=== PATIENT | male | born 2000 | race Two or more races ===

== ENCOUNTER 2019-07-07 05:41 | Inpatient (IN) | payer MEDICAID ==
[2019-07-07] VITALS (40 sets, daily range): BP systolic 75–146; BP diastolic 39–94
[~2019-07-07] VITALS: Ht 170.2 cm; Wt 61.2 kg
[2019-07-07] MEDS ORDERED: THROMBIN (BOVINE) 5000 UNITS/VIAL TOP ONE (06:10)
[2019-07-07] MEDS ORDERED: LIDOCAINE HCL/EPINEPHRINE 1%-EPI 1:100,000 20 ML VIAL ONE (06:11)
[2019-07-07] MEDS ORDERED: BACITRACIN 50,000 UNITS/VIAL ONE (06:11)
[2019-07-07] MEDS ORDERED: NEOSTIGMINE METHYLSULFATE 1MG/ML 10 ML VIAL ONE (06:51)
[2019-07-07] MEDS ORDERED: ROCURONIUM BROMIDE 10MG/ML VIAL 5ML IV ONE ×2 (06:51→07:25)
[2019-07-07] MEDS ORDERED: PROPOFOL 200MG/20ML VIAL IV ONE ×2 (06:51→09:30)
[2019-07-07] MEDS ORDERED: FENTANYL CITRATE/PF 50MCG/ML 2ML VIAL ONE (06:51)
[2019-07-07] MEDS ORDERED: MIDAZOLAM HCL 2 MG/2 ML VIAL ONE ×3 (06:52→09:25)
[2019-07-07] MEDS ORDERED: METOCLOPRAMIDE HCL 10MG/2ML VIAL ONE ×2 (06:52→07:29)
[2019-07-07] MEDS ORDERED: CEFAZOLIN SODIUM 1000MG/VIAL ONE (06:52)
[2019-07-07] MEDS ORDERED: GLYCOPYRROLATE 0.2 MG/ML 2ML VIAL ONE (06:52)
[2019-07-07] MEDS ORDERED: LIDOCAINE HCL/PF 1% 10 MG/ML 5ML VIAL ONE (06:53)
[2019-07-07] MEDS ORDERED: SODIUM CHLORIDE 0.9% 10ML VIAL ONE (06:55)
[2019-07-07] MEDS ORDERED: ONDANSETRON HCL 4MG/2ML INJ ONE (07:29)
[2019-07-07] MEDS ORDERED: ONDANSETRON HCL 4MG/2ML INJ IV PRN (09:00)
[2019-07-07] MEDS ORDERED: LORAZEPAM 2MG/ML CPJ ONE (09:24)
[2019-07-07] MEDS ORDERED: PHENYTOIN SODIUM 250MG/5ML VIAL IV ONE (09:36)
[2019-07-07] MEDS: MORPHINE SULFATE 4 MG/ML CPJ (NOT FOR IM USE) IV PRN ×2 (10:52→14:54)
[2019-07-07] MEDS ORDERED: DIAZEPAM 5 MG/ML 2ML CPJ IV SCH (11:00)
[2019-07-07] MEDS ORDERED: NICARDIPINE 100 MG in SODIUM CHLORIDE 0.9% 60 ML IV PRN (11:00)
[2019-07-07] MEDS ORDERED: DIAZEPAM 5 MG/ML 2ML CPJ IV ONE (12:15)
[2019-07-07] MEDS: DEXT 5%/LACTATED RINGERS 1,000 ML IV SCH (12:32)
[2019-07-07] MEDS ORDERED: CEFAZOLIN SODIUM 1000MG/VIAL IV SCH (14:00)
[2019-07-07 14:15] LABS: BG BASE EXCESS -0.7 mmol/L (-2.0-2.0); BG CARBOXYHEMOGLOBIN 0.7 % (0.5-1.5); BG DEOXYHEMOGLOBIN 3.9 % (0.0-5.0); BG FRACTION INSPIRED OXYGEN 21; BG HCO3 ACT 24.8 mmol/L (22.0-26.0); BG METHEMOGLOBIN 0.5 % (0.0-1.5); BG OXYGEN SATURATION 96.1 % (92.0-98.5); BG OXYHEMOGLOBIN 94.9 % (94.0-97.0); BG PCO2 43.7 mmHg (35.0-45.0); BG PH 7.372 (7.350-7.450); BG PO2 78.8 mmHg (75.0-100.0); BG SAMPLE SITE RIGHT RADIAL; BG VENT MODE ROOM AIR
[2019-07-07] MEDS ORDERED: NALOXONE INJ IV PRN (14:45)
[2019-07-07] MEDS ORDERED: ONDANSETRON INJ IV PRN (14:45)
[2019-07-07] MEDS ORDERED: DIPHENHYDRAMINE INJ IV PRN (14:45)
[2019-07-07] MEDS: CEFAZOLIN 1000MG PREMIX 50 ML IV SCH ×2 (14:45→21:22)
[2019-07-07] MEDS: PHENYTOIN SODIUM 100MG/2ML VIAL IV SCH ×2 (14:45→22:00)
[2019-07-07 16:27] LABS: HEMATOCRIT. 44.8 % (42.0-52.0); HEMOGLOBIN. 15.5 g/dL (14.0-18.0); MEAN PLATELET VOLUME 8.6 fl (7.4-10.4); PLATELET 229 x1000/uL (130-400); RED BLOOD CELL COUNT 5.15 mill/uL (4.7-6.1); RED CELL DISTRIBUTION WIDTH 13.1 % (11.6-14.6)
[2019-07-07 16:31] LABS: CHLORIDE 104 mEq/L (98-107)
[2019-07-07] MEDS: HYDROMORPHONE PCA 10MG/50ML IV PRN (16:34)
[2019-07-07 16:39] LABS: CREATINE KINASE 432 IU/L (39-308)
[2019-07-07 17:09] LABS: PLATELET ESTIMATE NORMAL
[2019-07-08] VITALS (60 sets, daily range): BP systolic 113–180; BP diastolic 30–102
[2019-07-08] MEDS: CEFAZOLIN 1000MG PREMIX 50 ML IV SCH ×3 (05:09→22:05)
[2019-07-08] MEDS: HYDROCODONE/ACETAMINOPHEN 5/325MG TABLET PO PRN ×3 (05:16→17:48)
[2019-07-08 05:57] LABS: BASOPHILS % 0.2 % (0.0-2.0); CHLORIDE 103 mEq/L (98-107); HEMATOCRIT. 43.4 % (42.0-52.0); HEMOGLOBIN. 15.3 g/dL (14.0-18.0); MEAN CORPUSCULAR HEMOGLOBIN 30.4 pg (28.0-32.0); MEAN CORPUSCULAR VOLUME 86.2 fL (80.0-94.0); MEAN PLATELET VOLUME 8.9 fl (7.4-10.4); MONOCYTES % 8.4 % (2.0-8.0); NEUTROPHILS % 79.4 % (40.0-76.0); PLATELET 213 x1000/uL (130-400); RED BLOOD CELL COUNT 5.04 mill/uL (4.7-6.1); RED CELL DISTRIBUTION WIDTH 13.5 % (11.6-14.6)
[2019-07-08] MEDS: PHENYTOIN SODIUM 100MG/2ML VIAL IV SCH ×3 (05:57→21:49)
[2019-07-08 09:47] LABS: *AMPHETAMINES SCREEN URINE NEGATIVE (NEGATIVE); *BARBITURATES SCREEN URINE NEGATIVE (NEGATIVE); *BENZODIAZEPINES SCREEN URINE NEGATIVE (NEGATIVE)
[2019-07-08 09:48] LABS: *COCAINE SCREEN URINE NEGATIVE (NEGATIVE); CANNABINOID URINE SCREEN NEGATIVE (NEGATIVE); METHADONE URINE SCREEN NEGATIVE (NEGATIVE); OPIATES URINE SCREEN NEGATIVE (NEGATIVE); PHENCYCLIDINE URINE SCREEN NEGATIVE (NEGATIVE)
[2019-07-08] MEDS: DEXT 5%/LACTATED RINGERS 1,000 ML IV SCH ×4 (14:10→23:09)
[2019-07-08] MEDS: DOCUSATE SODIUM 100MG CAPSULE PO SCH (17:47)
[2019-07-08] MEDS ORDERED: POTASSIUM CHLORIDE 20MEQ TABLET SR PO NR (21:00)
[2019-07-09] VITALS: BP 123/72
[2019-07-09 04:00] VITALS: BP 122/80
[2019-07-09] MEDS: CEFAZOLIN 1000MG PREMIX 50 ML IV SCH (05:04)
[2019-07-09] MEDS: PHENYTOIN SODIUM 100MG/2ML VIAL IV SCH ×3 (05:15→21:35)
[2019-07-09 05:59] LABS: CHLORIDE 104 mEq/L (98-107)
[2019-07-09 06:05] LABS: BASOPHILS % 0.2 % (0.0-2.0); EOSINOPHILS % 0.3 % (0.0-5.0); HEMATOCRIT. 43.5 % (42.0-52.0); HEMOGLOBIN. 15.2 g/dL (14.0-18.0); LYMPHOCYTES % 16.6 % (20.0-50.0); MEAN CORPUSCULAR HEMOGLOBIN 30.4 pg (28.0-32.0); MEAN CORPUSCULAR VOLUME 87.3 fL (80.0-94.0); MEAN PLATELET VOLUME 8.8 fl (7.4-10.4); MONOCYTES % 10.2 % (2.0-8.0); NEUTROPHILS % 72.7 % (40.0-76.0); PLATELET 205 x1000/uL (130-400); RED BLOOD CELL COUNT 4.98 mill/uL (4.7-6.1); RED CELL DISTRIBUTION WIDTH 13.3 % (11.6-14.6)
[2019-07-09 08:00] VITALS: BP 129/86
[2019-07-09] MEDS: DOCUSATE SODIUM 100MG CAPSULE PO SCH ×2 (08:39→18:02)
[2019-07-09 12:00] VITALS: BP 131/73
[2019-07-09] MEDS: DEXT 5%/LACTATED RINGERS 1,000 ML IV SCH ×2 (13:04→20:44)
[2019-07-09 16:00] VITALS: BP 128/70
[2019-07-09 20:00] VITALS: BP 123/77
[2019-07-09] MEDS: HYDROMORPHONE PCA 10MG/50ML IV PRN (20:33)
[2019-07-10] VITALS: BP 129/68
[2019-07-10 04:00] VITALS: BP 127/67
[2019-07-10] MEDS: PHENYTOIN SODIUM 100MG/2ML VIAL IV SCH (05:46)
[2019-07-10] MEDS: DEXT 5%/LACTATED RINGERS 1,000 ML IV SCH (05:47)
[2019-07-10 06:21] LABS: BASOPHILS % 0.3 % (0.0-2.0); EOSINOPHILS % 0.3 % (0.0-5.0); HEMATOCRIT. 43.3 % (42.0-52.0); HEMOGLOBIN. 15.3 g/dL (14.0-18.0); LYMPHOCYTES % 20.6 % (20.0-50.0); MEAN CORPUSCULAR HEMOGLOBIN 30.5 pg (28.0-32.0); MEAN CORPUSCULAR VOLUME 86.2 fL (80.0-94.0); MEAN PLATELET VOLUME 8.7 fl (7.4-10.4); MONOCYTES % 8.4 % (2.0-8.0); NEUTROPHILS % 70.4 % (40.0-76.0); PLATELET 210 x1000/uL (130-400); RED BLOOD CELL COUNT 5.03 mill/uL (4.7-6.1); RED CELL DISTRIBUTION WIDTH 13.4 % (11.6-14.6)
[2019-07-10 06:39] LABS: CHLORIDE 102 mEq/L (98-107)
[2019-07-10 08:00] VITALS: BP 113/57
[2019-07-10] MEDS: DOCUSATE SODIUM 100MG CAPSULE PO SCH ×2 (08:22→16:31)
[2019-07-10] MEDS ORDERED: MORPHINE SULFATE 2 MG/ML CPJ (NOT FOR IM USE) IV PRN (11:15)
[2019-07-10] MEDS: HYDROCODONE/ACETAMINOPHEN 5/325MG TABLET PO PRN ×2 (11:17→20:12)
[2019-07-10] MEDS: ONDANSETRON HCL 4MG/2ML INJ IV PRN (11:24)
[2019-07-10 12:00] VITALS: BP 136/73
[2019-07-10] MEDS: PHENYTOIN SODIUM EXTENDED 100MG CAPSULE PO SCH ×2 (13:48→22:40)
[2019-07-10 16:00] VITALS: BP 143/87
[2019-07-10 20:00] VITALS: BP 121/70
[2019-07-10] MEDS ORDERED: DIPHENHYDRAMINE 25MG CAPSULE PO PRN (22:30)
[2019-07-11] VITALS: BP 128/74
[2019-07-11] MEDS: HYDROCODONE/ACETAMINOPHEN 5/325MG TABLET PO PRN ×3 (03:47→18:03)
[2019-07-11 04:00] VITALS: BP 128/82
[2019-07-11] MEDS: PHENYTOIN SODIUM EXTENDED 100MG CAPSULE PO SCH ×3 (05:42→22:15)
[2019-07-11 08:00] VITALS: BP 118/74
[2019-07-11] MEDS: DOCUSATE SODIUM 100MG CAPSULE PO SCH ×2 (08:18→17:00)
[2019-07-11 12:00] VITALS: BP 120/62
[2019-07-11] MEDS ORDERED: DOCUSATE SODIUM 250MG CAPSULE PO PRN ×2 (15:15→15:30)
[2019-07-11 16:00] VITALS: BP 121/68
[2019-07-11] MEDS: ONDANSETRON HCL 4MG/2ML INJ IV PRN (18:28)
[2019-07-11] MEDS ORDERED: CALCIUM CARBONATE 500MG TABLET CHEW PO PRN (18:45)
[2019-07-11 20:00] VITALS: BP 111/68
[2019-07-12] VITALS: BP 122/65
[2019-07-12] MEDS: HYDROCODONE/ACETAMINOPHEN 5/325MG TABLET PO PRN ×2 (00:48→06:49)
[2019-07-12 04:00] VITALS: BP 127/73
[2019-07-12] MEDS: PHENYTOIN SODIUM EXTENDED 100MG CAPSULE PO SCH ×2 (06:49→13:24)
[2019-07-12 08:00] VITALS: BP 121/83
[2019-07-12] MEDS: POLYETHYLENE GLYCOL 3350 (17GM) 1 DOSE PACK PO SCH ×2 (08:31→08:37)
[2019-07-12 12:00] VITALS: BP 122/74
[2019-07-12] MEDS ORDERED: HYDR-4001 MT (12:22)
[2019-07-12 14:28] VITALS: BP 122/74
== END 2019-07-12 15:50 | disposition home health service (06) | DRG 23 ==
LOC: OR 05:41 → MICUNO 10:00 → 6EST 07-08 16:30
PROVIDERS: ADMIT Neurological Surgery; ATTEND Internal Medicine
PROC: 00NW0ZZ Release Cervical Spinal Cord, Open Approach (ICD-10-PCS; principal; 2019-07-07)
DX: G93.5 Compression of brain (principal); G93.40 Encephalopathy, unspecified; G82.50 Quadriplegia, unspecified; G95.20 Unspecified cord compression; R73.9 Hyperglycemia, unspecified
CPT/HCPCS: 36415; 36600; 70551; 72040; 76000; 80048; 80305; 82375; 82550; 82805; 83036; 85025; 86850; 86900; 86920; 88304; 88311; 95925; 95926; 95928; 95929; 97116; 97163; J0690; J1165; J1170; J2060; J2250; J2270; J2405; J2704; J2710; J2765; J3010; J3490; J7121; L0172; Q0163